=== PATIENT | male | born 1965 | race Two or more races ===

== ENCOUNTER 2020-12-20 08:22 | Emergency (ER) | payer SELFPAY ==
[~2020-12-20] VITALS: Ht 177.8 cm; Wt 95.4 kg
[2020-12-20 13:46] VITALS: BP 148/84
== END 2020-12-20 13:51 | disposition home or self-care (01) ==
LOC: ED 09:39
DX: R07.89 Other chest pain (principal); R20.2 Paresthesia of skin; I10 Essential (primary) hypertension; F17.200 Nicotine dependence, unspecified, uncomplicated; R94.31 Abnormal electrocardiogram [ECG] [EKG]